=== PATIENT | female | born 2000 | race Hispanic/Latino ===

== ENCOUNTER 2020-07-14 10:47 | Emergency (ER) | payer MEDICAID, OTHER ==
[2020-07-14 11:49] LABS: BASOPHILS % (AUTO) 0.7 % (0.0-5.0); EOSINOPHILS % (AUTO) 5.4 % (0.0-8.0); HEMATOCRIT 43.6 % (36-48); LYMPHOCYTES % (AUTO) 32.6 % (21.0-51.0); MEAN CORPUSCULAR HEMOGLOBIN 29.2 pg (27.0-33.0); MEAN CORPUSCULAR HGB CONC 33.3 g/dL (32.0-36.0); MEAN CORPUSCULAR VOLUME 87.9 fL (80-100); MONOCYTES % (AUTO) 5.9 % (3.0-13.0); NEUTROPHILS % (AUTO) 55.1 % (40.0-77.0); PLATELET COUNT (AUTO) 243 K/uL (130-400); RED BLOOD CELL COUNT(AUTO) 4.96 MIL/uL (4.00-5.50); RED CELL DISTRIBUTION WIDTH 12.3 % (11.0-15.5); WHITE BLOOD COUNT (AUTO) 6.1 K/uL (4.8-10.8)
[2020-07-14 11:53] LABS: APPEARANCE,URINE Clear (CLEAR); BILIRUBIN,URINE Negative (NEGATIVE); COLOR,URINE Yellow (YELLOW); GLUCOSE, URINE (UA) Negative (NEGATIVE); KETONES,URINE Negative (NEGATIVE); LEUKOCYTE ESTERASE ,URINE Negative (NEGATIVE); NITRATE,URINE Negative (NEGATIVE); OCCULT BLOOD,URINE Negative (NEGATIVE); PROTEIN,URINE Negative (NEGATIVE); UROBILINOGEN,URINE 0.2 mg/dL (0.2-1.0)
[2020-07-14 11:57] LABS: HCG,QUAL RESULT NEGATIVE (NEGATIVE)
[2020-07-14 12:01] LABS: CREATININE 0.8 mg/dL (0.5-1.5); POTASSIUM 3.3 mmol/L (3.5-5.1)
[2020-07-14 12:05] LABS: ALBUMIN 4.6 g/dL (3.5-5.0); BILIRUBIN,TOTAL 0.5 mg/dL (0.2-1.0); TOTAL PROTEIN, SERUM 8.8 g/dL (6.0-8.3)
[2020-07-14] MEDS ORDERED: POTASSIUM BICARB/CIT AC 25 MEQ TABLET.EFF ONE (12:19)
== END 2020-07-14 13:33 | disposition home or self-care (01) ==
LOC: EDH 10:47
DX: N26.1 Atrophy of kidney (terminal) (principal); R10.9 Unspecified abdominal pain
CPT/HCPCS: 36415; 74176; 80053; 81003; 81025; 85025

== ENCOUNTER 2024-06-15 16:24 | Emergency (ER) | payer SELFPAY ==
[~2024-06-15] VITALS: Ht 152.4 cm; Wt 56.7 kg
[2024-06-15 18:17] LABS: BASOPHILS # (AUTO) 0.03 K/uL (0.00-0.20); BASOPHILS % (AUTO) 0.4 % (0.0-5.0); EOSINOPHILS # (AUTO) 0.38 K/uL (0.00-0.70); EOSINOPHILS % (AUTO) 4.8 % (0.0-8.0); HEMATOCRIT 41.7 % (36-48); IMMATURE GRANULOCYTE ABSOLUTE 0.03 K/uL (0-1); LYMPHOCYTES # (AUTO) 2.6 K/uL (1.0-4.8); LYMPHOCYTES % (AUTO) 31.9 % (21.0-51.0); MEAN CORPUSCULAR HEMOGLOBIN 29.1 pg (27.0-33.0); MEAN CORPUSCULAR HGB CONC 32.9 g/dL (32.0-36.0); MEAN CORPUSCULAR VOLUME 88.5 fL (79-99); MONOCYTES # (AUTO) 0.5 K/uL (0.1-1.0); MONOCYTES % (AUTO) 5.6 % (3.0-13.0); NEUTROPHILS # (AUTO) 4.6 K/uL (1.8-7.7); NEUTROPHILS % (AUTO) 56.9 % (40.0-77.0); PLATELET COUNT (AUTO) 252 K/uL (130-400); RED BLOOD CELL COUNT(AUTO) 4.71 MIL/uL (4.00-5.50); RED CELL DISTRIBUTION WIDTH 12.7 % (11.0-15.5)
[2024-06-15 18:28] LABS: CREATININE 0.7 mg/dL (0.5-1.0); POTASSIUM 4.3 mmol/L (3.5-5.1)
[2024-06-15 18:32] LABS: ALBUMIN 4.3 g/dL (3.5-5.0); BILIRUBIN,TOTAL 0.2 mg/dL (0.2-1.0); TOTAL PROTEIN, SERUM 8.1 g/dL (6.0-8.3)
[2024-06-15 19:09] LABS: APPEARANCE,URINE CLOUDY (CLEAR); BILIRUBIN,URINE NEGATIVE (NEGATIVE); COLOR,URINE LIGHT-YELLOW (YELLOW); GLUCOSE, URINE (UA) NEGATIVE (NEGATIVE); KETONES,URINE NEGATIVE (NEGATIVE); LEUKOCYTE ESTERASE ,URINE 250 Leu/uL (NEGATIVE); NITRATE,URINE NEGATIVE (NEGATIVE); OCCULT BLOOD,URINE NEGATIVE (NEGATIVE); PH,URINE 6.5 (5.0-8.0); PROTEIN,URINE NEGATIVE (NEGATIVE); UROBILINOGEN,URINE 0.2 mg/dL (0.2-1.0)
[2024-06-15 19:10] LABS: ADD UA MICROSCOPIC YES
[2024-06-15 19:17] LABS: HCG,QUALITATIVE URINE NEGATIVE (NEGATIVE)
[2024-06-15 19:18] LABS: MUCUS,URINE RARE LPF (None Seen); SQUAMOUS EPITHELIAL CELL,UR MANY /HPF (0-2); WBC,URINE 26-50 /HPF (0-1)
[2024-06-15] MEDS ORDERED: CEPH500B PO (19:45)
[2024-06-15] MEDS: CEFTRIAXONE 1G VIAL IM ONE (19:54)
[2024-06-15] MEDS: AZITHROMYCIN 250 MG TABLET PO ONE (19:54)
[2024-06-15 20:05] VITALS: BP 125/80; PULSE 70; RESP 20; O2SAT 97
== END 2024-06-15 20:41 | disposition home or self-care (01) ==
LOC: EDH 16:24
DX: N39.0 Urinary tract infection, site not specified (principal); N89.8 Other specified noninflammatory disorders of vagina
CPT/HCPCS: 99283; 80053; 83690; 85025; 87086; 87491; 87591; 81001; 81025; 36415; 96372; J0696

== ENCOUNTER 2024-08-05 10:11 | Emergency (ER) | payer SELFPAY ==
[~2024-08-05] VITALS: Ht 149.9 cm; Wt 55.3 kg
[~2024-08-05 10:11] MED LIST: CEPH500B PO
[2024-08-05 10:22] VITALS: BP 133/85; PULSE 85; RESP 18; TEMP 98.4; O2SAT 100
[2024-08-05 11:12] LABS: APPEARANCE,URINE CLOUDY (CLEAR); BILIRUBIN,URINE NEGATIVE (NEGATIVE); COLOR,URINE LIGHT-YELLOW (YELLOW); GLUCOSE, URINE (UA) NEGATIVE (NEGATIVE); KETONES,URINE NEGATIVE (NEGATIVE); LEUKOCYTE ESTERASE ,URINE 500 Leu/uL (NEGATIVE); NITRATE,URINE NEGATIVE (NEGATIVE); PROTEIN,URINE 20 mg/dL (NEGATIVE); UROBILINOGEN,URINE 0.2 mg/dL (0.2-1.0)
[2024-08-05 11:14] LABS: ADD UA MICROSCOPIC YES
[2024-08-05 11:17] LABS: BACTERIA,URINE FEW /HPF (None Seen); MUCUS,URINE RARE LPF (None Seen); SQUAMOUS EPITHELIAL CELL,UR FEW /HPF (0-2); WBC,URINE >100 /HPF (0-1)
[2024-08-05] MEDS: PHENAZOpyridine HCL 200 MG TAB 200 MG TABLET PO ONE (11:32)
[2024-08-05] MEDS: cefTRIAXone 1G VIAL IM ONE (11:32)
[2024-08-05] MEDS ORDERED: CEPH500T PO (12:12)
== END 2024-08-05 12:33 | disposition home or self-care (01) ==
LOC: EDH 10:11
DX: N39.0 Urinary tract infection, site not specified (principal); Z79.899 Other long term (current) drug therapy
CPT/HCPCS: 99283; 87086 ×2; 87186; 87491; 87591; 81001; 81025; 96372; J0696

== ENCOUNTER 2024-08-26 18:06 | Emergency (ER) | payer SELFPAY ==
[~2024-08-26] VITALS: Ht 152.4 cm; Wt 55.3 kg
[~2024-08-26 18:06] MED LIST changes: +CEPH500T PO
[2024-08-26 18:53] LABS: BASOPHILS # (AUTO) 0.02 K/uL (0.00-0.20); BASOPHILS % (AUTO) 0.2 % (0.0-5.0); EOSINOPHILS % (AUTO) 4.4 % (0.0-8.0); HEMATOCRIT 41.9 % (36-48); IMMATURE GRANULOCYTE ABSOLUTE 0.03 K/uL (0-1); LYMPHOCYTES # (AUTO) 2.4 K/uL (1.0-4.8); MEAN CORPUSCULAR HEMOGLOBIN 30.2 pg (27.0-33.0); MEAN CORPUSCULAR HGB CONC 33.4 g/dL (32.0-36.0); MEAN CORPUSCULAR VOLUME 90.3 fL (79-99); MONOCYTES # (AUTO) 0.6 K/uL (0.1-1.0); MONOCYTES % (AUTO) 6.9 % (3.0-13.0); NEUTROPHILS # (AUTO) 5.6 K/uL (1.8-7.7); NEUTROPHILS % (AUTO) 62.2 % (40.0-77.0); PLATELET COUNT (AUTO) 228 K/uL (130-400); RED BLOOD CELL COUNT(AUTO) 4.64 MIL/uL (4.00-5.50); RED CELL DISTRIBUTION WIDTH 12.1 % (11.0-15.5)
[2024-08-26 19:04] LABS: CREATININE 0.7 mg/dL (0.5-1.0); POTASSIUM 3.9 mmol/L (3.5-5.1)
[2024-08-26] MEDS: acetaMINOPHEN 500 MG TABLET PO ONE (19:13)
[2024-08-26 19:23] LABS: APPEARANCE,URINE CLOUDY (CLEAR); BILIRUBIN,URINE NEGATIVE (NEGATIVE); COLOR,URINE LIGHT-YELLOW (YELLOW); GLUCOSE, URINE (UA) NEGATIVE (NEGATIVE); KETONES,URINE NEGATIVE (NEGATIVE); LEUKOCYTE ESTERASE ,URINE NEGATIVE Leu/uL (NEGATIVE); NITRATE,URINE NEGATIVE (NEGATIVE); OCCULT BLOOD,URINE NEGATIVE (NEGATIVE); PROTEIN,URINE NEGATIVE (NEGATIVE); UROBILINOGEN,URINE 0.2 mg/dL (0.2-1.0)
[2024-08-26 19:24] LABS: ADD UA MICROSCOPIC YES
[2024-08-26 19:31] LABS: MUCUS,URINE RARE LPF (None Seen); RBC,URINE 0-1 /HPF (0-1); SQUAMOUS EPITHELIAL CELL,UR FEW /HPF (0-2); UNCLASSIFIED CRYSTAL 5 /HPF (None Seen); YEAST,URINE BUDDING FEW /HPF (None Seen)
[2024-08-26 20:17] VITALS: BP 121/86; PULSE 75; RESP 16; TEMP 98.3; O2SAT 99
== END 2024-08-26 20:47 | disposition home or self-care (01) ==
LOC: EDH 18:06
DX: O26.891 Other specified pregnancy related conditions, first trimester (principal); R10.2 Pelvic and perineal pain
CPT/HCPCS: 36415; 76801; 80048; 81001; 84702; 85025

== ENCOUNTER 2024-09-08 20:33 | Emergency (ER) | payer SELFPAY ==
[~2024-09-08] VITALS: Ht 152.4 cm; Wt 55.3 kg
[2024-09-08 21:16] LABS: BASOPHILS # (AUTO) 0.04 K/uL (0.00-0.20); BASOPHILS % (AUTO) 0.4 % (0.0-5.0); EOSINOPHILS # (AUTO) 0.56 K/uL (0.00-0.70); EOSINOPHILS % (AUTO) 5.1 % (0.0-8.0); HEMATOCRIT 39.7 % (36-48); IMMATURE GRANULOCYTE ABSOLUTE 0.05 K/uL (0-1); LYMPHOCYTES # (AUTO) 2.7 K/uL (1.0-4.8); LYMPHOCYTES % (AUTO) 24.3 % (21.0-51.0); MEAN CORPUSCULAR HEMOGLOBIN 30.3 pg (27.0-33.0); MEAN CORPUSCULAR HGB CONC 34.3 g/dL (32.0-36.0); MEAN CORPUSCULAR VOLUME 88.4 fL (79-99); MONOCYTES # (AUTO) 0.6 K/uL (0.1-1.0); MONOCYTES % (AUTO) 5.8 % (3.0-13.0); NEUTROPHILS # (AUTO) 7.1 K/uL (1.8-7.7); NEUTROPHILS % (AUTO) 63.9 % (40.0-77.0); PLATELET COUNT (AUTO) 232 K/uL (130-400); RED BLOOD CELL COUNT(AUTO) 4.49 MIL/uL (4.00-5.50); RED CELL DISTRIBUTION WIDTH 11.9 % (11.0-15.5); WHITE BLOOD COUNT (AUTO) 11.1 K/uL (4.8-10.8)
[2024-09-08 21:25] LABS: CREATININE 0.7 mg/dL (0.5-1.0); POTASSIUM 3.9 mmol/L (3.5-5.1)
[2024-09-08 21:35] VITALS: BP 117/69; PULSE 100; RESP 20; TEMP 98.8; O2SAT 98
== END 2024-09-08 22:15 | disposition home or self-care (01) ==
LOC: EDH 20:33
DX: O20.0 Threatened abortion (principal); R10.2 Pelvic and perineal pain; Z3A.01 Less than 8 weeks gestation of pregnancy; Z79.899 Other long term (current) drug therapy
CPT/HCPCS: 36415; 76801; 80048; 84702; 85025

== ENCOUNTER 2025-09-07 18:36 | Emergency (ER) | payer MEDICAID ==
[~2025-09-07] VITALS: Ht 152.4 cm; Wt 58.5 kg
[2025-09-07 19:11] LABS: CREATININE 0.5 mg/dL (0.5-1.0); GLOMERULAR FILTR. RATE CALC 133.0 mL/min (>90); GLUCOSE,RANDOM 107.0 mg/dL (70-105); IMMATURE GRANULOCYTE ABSOLUTE 0.05 K/uL (0-1); NUCLEATED RED BLOOD CELLS 0.0 % (0.0-0.19); PLATELET COUNT (AUTO) 228 K/uL (130-400); RED BLOOD CELL COUNT(AUTO) 3.97 MIL/uL (4.00-5.50); RED CELL DISTRIBUTION WIDTH 12.9 % (11.0-15.5); SODIUM SERUM 137.0 mmol/L (136-145); UREA NITROGEN, BLOOD 9.0 mg/dL (7-18); WHITE BLOOD COUNT (AUTO) 10.6 K/uL (4.8-10.8)
--- NOTE | 2025-09-07 19:21 | NUR ---
PATIENT IS REFUSING TYLENOL BECAUSE SHE IS CONCERNED FOR THE HEALTH OF HER .
[2025-09-07 19:26] LABS: APPEARANCE,URINE CLEAR (CLEAR); GLUCOSE, URINE (UA) NEGATIVE (NEGATIVE); LEUKOCYTE ESTERASE ,URINE 75 Leu/uL (NEGATIVE); NITRATE,URINE NEGATIVE (NEGATIVE); OCCULT BLOOD,URINE NEGATIVE (NEGATIVE)
[2025-09-07 19:28] LABS: ADD UA MICROSCOPIC YES
[2025-09-07 19:30] LABS: SQUAMOUS EPITHELIAL CELL,UR FEW /HPF (0-2)
--- NOTE | 2025-09-07 19:55 | NUR ---
JEROMY LENS WITH 250ML NS WAS PLACED IN PATIENT'S RIGHT EYE. PATIENT WAS ABLE TO TOLERATE WITHOUT PAIN.
[2025-09-07 19:58] VITALS: BP 109/66; PULSE 97; RESP 16; TEMP 97.9; O2SAT 100
--- NOTE | 2025-09-07 20:04 | NUR ---
PATIENT ASKED TO DISCONTINUE JEROMY LENS IRRIGATION DUE TO DISCOMFORT. JEROMY LENS DC'ED. 100ML ADMINISTERED PRIOR TO DC.
--- NOTE | 2025-09-07 20:18 | HMCIMG ---
EXAM: US Obstetrical, Complete >14 weeks CLINICAL HISTORY: Patient presents with abdominal pain. TECHNIQUE: Transabdominal imaging of the maternal pelvis and a >14 week gestation with image documentation. COMPARISON: None provided. FINDINGS: FETUS: There is a single living intrauterine gestation in breech presentation. POSITION: lie is oblique. HEART RATE: The heart rate is 158 beats per minute. BIOMETRICS: Biparietal diameter measures 4.24 cm, corresponding to 18 weeks 6 days. Head circumference measures 15.85 cm, corresponding to 18 weeks 5 days. Abdominal circumference measures 13.34 cm, corresponding to 18 weeks 6 days. Femur length measures 2.84 cm, corresponding to 18 weeks 5 days. Cephalic index measures 76.67% (normal range: 70???86%). HC/AC ratio is 1.19 (normal range: 1.09???1.26 at 18 weeks 5 days). Composite gestational age corresponds to 18 weeks 5 days. Estimated weight is 256 ??? 31 g, corresponding to the 37th percentile at 18 weeks 5 days. ANATOMIC SURVEY: The lateral ventricles, choroid plexus, cerebellum, cisterna magna, stomach, kidneys, urinary bladder, spine, and cord insertion are visualized and appear unremarkable. PLACENTA: The placenta is fundal, left lateral, Grade 1 maturity. No sonographic evidence for previa or abruption. AMNIOTIC FLUID: Amniotic fluid index measures 17.59 cm, within normal limits. CERVIX: Cervical length measures 2.2 cm; the cervix is closed. GESTATIONAL AGE: By LMP dated 04/27/2025, gestational age is 19 weeks 0 days. IMPRESSION: Single viable intrauterine of approximately 18 weeks 5 days gestation, consistent with LMP dating of 19 weeks. Fundal left lateral placenta, Grade 1, with no evidence of previa or abruption. Amniotic fluid within normal limits. Short cervix measuring 2.2 cm - recommend clinical correlation and follow-up. /[place]
--- NOTE | 2025-09-07 20:31 | ERN ---
ED Note History of Present Illness Stated Complaint: PELVIC PAIN, , EYE PAIN Chief Complaint: Abdominal Pain in Time Seen by MD: 18:38 Time Seen by Midlevel: 18:40 Dictation: 24-year-old female coming in with complaints of lower abdominal pain and right eye pain. Patient states the lower abdominal pain started yesterday in the eye pain started one week ago. She recently got a new job and has a do a lot of reaching and and since then has a had the lower abdominal pain. Denies any b lurry vision. Patient states he feels like a foreign body sensation. Patient was seen today at [facility] where they did ultrasound and an eye exam and was diagnosed with a corneal abrasion and placed on antibiotics. Discussed with the patient the corn body sensation is expected with a diagnosis of corneal abrasion. Patient is a wants to have her eye flushed. Allergies: Coded Allergies: No Known Allergies (Unverified Allergy, Unknown, 07/14/20) Home Meds Active Scripts Cephalexin (Cephalexin) 500 Mg Tablet, 500 MG PO BID for 7 Days, #14 TAB Prov:CHINO ANN 08/05/24 Cephalexin Monohydrate (Keflex) 500 Mg Cap, 500 MG PO BID for 7 Days, #28 CAP Prov:DEVAN MITTAL MD 06/15/24 Past Medical History Past Medical History: No Pertinent History Surgical History: None Social History: Negative History: Not Applicable LMP: May 05, 2025 : 2 Para: 1 Aborts: 0 Review of System Dictation Constitutional: Negative for fever,chills, and weight loss Eyes: Negative for injury, pain,redness, and discharge ENT: Negative for injury,pain or swelling, more body sensation to the right eye Cardiovascular: Negative for chest pain, palpitations, and edema Respiratory: Negative for shortness of breath, cough, and wheezing, Abdomen/GI: Abdominal pain Back: Negative for injury and pain : Negative for injury, bleeding and discharge MS/Extremity: Negative for injury and deformity Skin: Negative for rash, and discoloration Neuro: Negative for headache, weakness, numbness, tingling, and seizure Psych: Negative for suicide ideation, homicidal ideation, and hallucinations Review of Systems: was completed Initial Vital Sign VS Vital Signs Date Time Temp Pulse Resp B/P (MAP) Pulse Ox O2 Delivery O2 Flow Rate FiO2 11/1/25 18:38 97.9 97 16 109/66 100 Room Air 0 09/07/25 19:58 21 Physical Exam Dictation General: awake, alert, NAD Head/Face: Normocephalic, atraumatic Eyes: PERRL, EOMI, vision at baseline ENT: oral cavity clear, TMs clear, no signs of infection Neck: Trachea midline, supple, no nuchal rigidity Cardiovascular: RRR, normal S1/S2, No MRGs, no JVD Respiratory: CTAB, no respiratory distress, No rales or wheezes Abdomen: Soft, non-tender, non-distended, normal bowel sounds, no guarding or rebound. Skin: Warm, dry, normal turgor, no rash MS/Extremity: Pulses equal, no cyanosis, neurovascular intact, FROM Neuro: COAx4, GCS 15, strength 5/5, CN 2-12 intact, normal cerebellar exam, normal gait, Psych: Normal behavior, mood, and affect normal Results (Laboratory/Radiology) Laboratory/Radiology Laboratory Tests Test 09/07/25 18:56 09/07/25 19:13 White Blood Count 10.6 K/uL (4.8-10.8) Red Blood Count 3.97 MIL/uL (4.00-5.50) L Hemoglobin 11.9 g/dL (12.0-16.0) L Hematocrit 35.6 % (36-48) L Mean Corpuscular Volume 89.7 fL (79-99) Mean Corpuscular Hemoglobin 30.0 pg (27.0-33.0) Mean Corpuscular Hemoglobin Concent 33.4 g/dL (32.0-36.0) Red Cell Distribution Width 12.9 % (11.0-15.5) Platelet Count 228 K/uL (130-400) Mean Platelet Volume 11.2 fL (7.5-10.5) H Immature Granulocyte % (Auto) 0.5 % (0-1) Neutrophils (%) (Auto) 65.8 % (40.0-77.0) Lymphocytes (%) (Auto) 21.4 % (21.0-51.0) Monocytes (%) (Auto) 5.7 % (3.0-13.0) Eosinophils (%) (Auto) 6.3 % (0.0-8.0) Basophils (%) (Auto) 0.3 % (0.0-5.0) Neutrophils # (Auto) 7.0 K/uL (1.8-7.7) Lymphocytes # (Auto) 2.3 K/uL (1.0-4.8) Monocytes # (Auto) 0.6 K/uL (0.1-1.0) Eosinophils # (Auto) 0.67 K/uL (0.00-0.70) Basophils # (Auto) 0.03 K/uL (0.00-0.20) Absolute Immature Granulocyte (auto 0.05 K/uL (0-1) Nucleated Red Blood Cells 0.0 % (0.0-0.19) Sodium Level 137 mmol/L (136-145) Potassium Level 3.2 mmol/L (3.5-5.1) L Chloride Level 103 mmol/L (101-111) Carbon Dioxide Level 25 mmol/L (21-32) Blood Urea Nitrogen 9 mg/dL (7-18) Creatinine 0.5 mg/dL (0.5-1.0) Glomerular Filtration Rate Calc 133 mL/min (>90) Random Glucose 107 mg/dL (70-105) H Total Calcium 8.5 mg/dL (8.5-10.1) Urine Color LIGHT-YELLOW (YELLOW) Urine Appearance CLEAR (CLEAR) Urine pH 6.5 (5.0-8.0) Urine Specific [place] 1.024 (1.001-1.031) Urine Protein NEGATIVE mg/dL (NEGATIVE) Urine Glucose (UA) NEGATIVE mg/dL (NEGATIVE) Urine Ketones NEGATIVE mg/dL (NEGATIVE) Urine Occult Blood NEGATIVE (NEGATIVE) Urine Nitrate NEGATIVE (NEGATIVE) Urine Bilirubin NEGATIVE mg/dL (NEGATIVE) Urine Urobilinogen 0.2 mg/dL (0.2-1.0) Urine Leukocyte Esterase 75 Mesfin/uL (NEGATIVE) H Urine RBC 2-5 /HPF (0-1) H Urine WBC 2-5 /HPF (0-1) H Urine Squamous Epithelial Cells FEW /HPF (0-2) Urine Bacteria RARE /HPF (None Seen) Labs Reviewed?: Yes Ultrasound Comment: [address] [address] IMAGING REPORT Signed PATIENT: ELDA CONNER MR#: [id number] : 2000 SEX: F AGE: 24 LOCATION: [facility] ORDER 42 STATUS: REG ER REPORT#: [id number] SERVICE 41 REASON: abdominal pain ORDERING PHYSICIAN: RADHA FELIX CNP PROCEDURE: OB >14 - US OB >14 WEEKS EXAM: US Obstetrical, Complete >14 weeks CLINICAL HISTORY: Patient presents with abdominal pain. TECHNIQUE: Transabdominal imaging of the maternal pelvis and a >14 week gestation with image documentation. COMPARISON: None provided. FINDINGS: FETUS: There is a single living intrauterine gestation in breech presentation. POSITION: lie is oblique. HEART RATE: The heart rate is 158 beats per minute. BIOMETRICS: Biparietal diameter measures 4.24 cm, corresponding to 18 weeks 6 days. Head circumference measures 15.85 cm, corresponding to 18 weeks 5 days. Abdominal circumference measures 13.34 cm, corresponding to 18 weeks 6 days. Femur length measures 2.84 cm, corresponding to 18 weeks 5 days. Cephalic index measures 76.67% (normal range: 70???86%). HC/AC ratio is 1.19 (normal range: 1.09???1.26 at 18 weeks 5 days). Composite gestational age corresponds to 18 weeks 5 days. Estimated weight is 256 ??? 31 g, corresponding to the 37th percentile at 18 weeks 5 days. ANATOMIC SURVEY: The lateral ventricles, choroid plexus, cerebellum, cisterna magna, stomach, kidneys, urinary bladder, spine, and cord insertion are visualized and appear unremarkable. PLACENTA: The placenta is fundal, left lateral, Grade 1 maturity. No sonographic evidence for previa or abruption. AMNIOTIC FLUID: Amniotic fluid index measures 17.59 cm, within normal limits. CERVIX: Cervical length measures 2.2 cm; the cervix is closed. GESTATIONAL AGE: By LMP dated 04/27/2025, gestational age is 19 weeks 0 days. IMPRESSION: Single viable intrauterine of approximately 18 weeks 5 days gestation, consistent with LMP dating of 19 weeks. Fundal left lateral placenta, Grade 1, with no evidence of previa or abruption. Amniotic fluid within normal limits. Short cervix measuring 2.2 cm - recommend clinical correlation and follow-up. /[place] DICTATED BY: RYLAN MATTHEWS Jr., MD DATE: 09/07/252117 ELECTRONICALLY SIGNED BY: RYLAN MATTHEWS Jr., MD DATE: 09/07/252117 ED Course ED Course Orders Procedure Category Date Status Time Cbc With Differential LAB 09/07/25 Complete 18:42 Basic Metabolic Panel LAB 09/07/25 Complete 18:42 Us Ob >14 Weeks US 09/07/25 Resulted 18:42 Urinalysis Profile LAB 09/07/25 Complete 18:42 Acetaminophen 325 Tab PHA 09/07/25 Complete (Tylenol 325mg Tab 19:00 Culture Urine MARIO 09/07/25 In Process 19:29 Potassium Bicarb/Cit PHA 09/07/25 Complete Ac 25meq (K-Lyte Ta 19:47 Current Medications Medications (Trade) Dose Ordered Sig/Kwan Route PRN Reason Start Time Stop Time Status Last Admin Dose Admin Acetaminophen (TYLenol 325MG TAB) 650 mg ONCE ONCE PO 09/07/25 19:00 09/07/25 19:01 DC Potassium Bicarbonate (K-Lyte Tablet Eff 25 Meq Tablet.eff) 25 meq ONCE STAT PO 09/07/25 19:47 09/07/25 19:50 DC 09/07/25 20:12 Vital Signs Date Time Temp Pulse Resp B/P (MAP) Pulse Ox O2 Delivery O2 Flow Rate FiO2 09/07/25 19:58 97.9 97 16 109/66 100 Room Air* 0 21 09/07/25 18:38 97.9 97 16 109/66 100 Room Air 0 Medical Decision Making MDM MDM: 24-year-old female coming in with complaints of lower abdominal pain and right eye pain. Patient states the lower abdominal pain started yesterday in t he eye pain started one week ago. She recently got a new job and has a do a lot of reaching and and since then has a had the lower abdominal pain.Denies any blurry vision. Patient states he feels like a foreign body sensation. Patient was seen today at [facility] where they did ultrasound and an eye exam and was diagnosed with a corneal abrasion and placed on antibiotics. Discussed with the patient the corn body sensation is expected with a diagnosis of corneal abrasion. Patient is a wants to have her eye flushed.CBC shows no leukocytosis, mild anemia hemoglobin of 11 and hematocrit of 30 . No thrombocytopenia. Chemistry is showing hypokalemia at 3.2. Replacement given in the emergency room. UA no evidence of urinary tract inf ection. Ultrasound shows single viable IUP approximately eight weeks five days gestation, left lateral placenta, heart rate is 158. Patient's eye was flushed with NS, was not inspected and no obvious foreign body. Discussed with the patient that it can be normal to feel foreign body sensation when your diagnosed with a corneal abrasion and she needs to follow up outpatient on Tuesday with the ophthalmology. Patient verbalized understanding, answered all questions. Differential diagnosis: Abrasion, UTI Rationale: Tests considered and ordered secondary to shared decision making include: Previous outside records reviewed: Old ER visits. Risk of complication and/or morbidity or mortality of patient management: None Medications-Per medication reconciliation Need for hospitalization: Patient does not meet criteria for hospitalization. Need for emergency major/minor surgery: No There are no social concerns with this patient. Prescription drug management Prescriptions will include symptomatic care Patient's prior external medical records from other ER visits were reviewed by me as indicated. Prior testing and results from previous visits were reviewed. Prior tests were taken into account with medical decision making and resource utilization, independent historian/historians were used to obtain complete medical history. I independently interpreted the test that were performed, results were reviewed by me and considered findings on radiology if ordered. Medical management and examination interpretation discussions were had by me with other qualified healthcare professionals as indicated for the patient's care. DX & DISP Disposition: Discharge Departure Impression: Primary Impression: Abdominal pain during Condition: Stable Additional Instructions: Please follow up with your PCP in 1-2 day then with the your OBGYN. Return to the hospital if you have any worsening symptoms. Referrals: [facility] (PCP) Time of Disposition: 20:27 I have reviewed the case, and I agree with, Diagnosis and Plan RADHA FELIX CNP Sep 07, 2025 20:31
== END 2025-09-07 20:36 | disposition home or self-care (01) ==
LOC: EDH 18:36
DX: O26.892 Other specified pregnancy related conditions, second trimester (principal); R10.30 Lower abdominal pain, unspecified; H57.11 Ocular pain, right eye; Z3A.18 18 weeks gestation of pregnancy
CPT/HCPCS: 36415; 76805; 80048; 81001; 85025; 87086; 99284